=== PATIENT | female | born 1940 | race Caucasian/White ===

== ENCOUNTER 2017-11-26 21:41 | Emergency (ER) | payer MEDICARE, OTHER ==
[~2017-11-26] VITALS: Ht 144.8 cm; Wt 56.7 kg
[~2017-11-26 21:41] MED LIST: ATEN25 PO; BP MED; CELE200 PO; CEPH500 PO; CLON.5 PO; CODACE30 PO; COMPLETE MULTI1 EACH PO; HYDACE10B PO; HYDACE5 PO; IBUP600 PO; LEVSOD150 PO; MORP30ER PO; Neurontin 300300 MG PO; Norco 5-325 Ta1 EACH PO; OXYACE5T PO; OXYC15ER PO; OXYC5 PO; PHENA200 PO; POTASSIUM GLUCONATE; PRAV20 PO; PRED5 PO; Percocet 5-3251 EACH PO; Prednisone20 MG PO; ROSU10TA; SALS500 PO; SPIR25 PO; SULTRIDS PO; SYNTHROID; TRIHYD253A PO; VERA180ERB PO; ZALE10 PO; Zofran4 MG PO; [UNRECOGNIZED DRUG - REMARK]
== END 2017-11-26 23:50 | disposition home or self-care (01) ==
LOC: ER 21:41
DX: S00.83XA Contusion of other part of head, initial encounter (principal); I10 Essential (primary) hypertension; Z87.891 Personal history of nicotine dependence; Z79.899 Other long term (current) drug therapy; Z90.710 Acquired absence of both cervix and uterus; Z90.49 Acquired absence of other specified parts of digestive tract; W01.0XXA Fall on same level from slipping, tripping and stumbling without subsequent striking against object, initial encounter
CPT/HCPCS: 70450; 99284

== ENCOUNTER 2017-12-09 17:08 | Emergency (ER) | payer MEDICARE, OTHER ==
[~2017-12-09] VITALS: Ht 144.8 cm; Wt 59.0 kg
[2017-12-09] MEDS ORDERED: MECL12.5 PO (18:07)
== END 2017-12-09 18:34 | disposition home or self-care (01) ==
LOC: ER 17:08
DX: R42 Dizziness and giddiness (principal); I10 Essential (primary) hypertension; Z79.899 Other long term (current) drug therapy; Z87.891 Personal history of nicotine dependence; Z90.710 Acquired absence of both cervix and uterus; Z90.49 Acquired absence of other specified parts of digestive tract
CPT/HCPCS: 70450; 99284

== ENCOUNTER 2018-04-27 10:05 | Inpatient (IN) | payer MEDICARE, OTHER ==
[~2018-04-27] VITALS: Ht 149.9 cm; Wt 64.4 kg
[~2018-04-27 10:05] MED LIST changes: +MECL12.5 PO
[2018-04-27 11:41] LABS: BASOPHILS ABSOLUTE AUTO 0.02 K/mm3 (0.00-0.23); BASOPHILS PERCENT AUTO 0 % (0-2); EOSINOPHILS PERCENT AUTO 0 % (0-6); Hematocrit 39.2 % (33.0-51.0); Hemoglobin 13.6 g/dL (11.5-16.0); IMMATURE GRAN ABSOLUTE AUTO 0.06 K/mm3 (0.00-0.10); IMMATURE GRAN PERCENT AUTO 0 % (0-1); LYMPHOCYTES ABSOLUTE AUTO 0.92 K/mm3 (0.84-5.20); LYMPHOCYTES PERCENT AUTO 7 % (21-46); MONOCYTES ABSOLUTE AUTO 0.78 K/mm3 (0.16-1.47); MONOCYTES PERCENT AUTO 6 % (4-13); Mean Corpuscular HGB 29.8 pg (26.0-34.0); Mean Corpuscular HGB Conc 34.7 g/dL (31.5-36.5); Mean Corpuscular Volume 86 fL (80-100); Mean Platelet Volume 10.9 fL (9.1-12.4); NEUTROPHILS ABSOLUTE AUTO 12.03 K/mm3 (1.96-9.15); NEUTROPHILS PERCENT AUTO 87 % (41-73); Platelet Count 304 K/mm3 (150-400); RDW Coefficient Variation 12.2 % (11.7-14.2); Red Blood Cell Count 4.57 M/mm3 (3.80-5.20); White Blood Cell Count 13.81 K/mm3 (4.00-11.30)
[2018-04-27 11:45] LABS: International Normalized Ratio 1.02; Prothrombin Time Results 10.5 Sec (9.7-11.5)
[2018-04-27 11:48] LABS: Alanine Aminotransfer (ALT/SGP 23 U/L (12-78); Albumin, Blood 3.8 g/dL (3.4-5.0); Alk Phos 105 U/L (50-136); Anion Gap 9 mmol/L (6-16); Aspartate Aminotrans (AST/SGOT 30 U/L (12-37); Bilirubin, Total 0.6 mg/dL (0.1-1.0); Blood Urea Nitrogen 11 mg/dL (8-24); Bun/Creatinine Ratio 22.5 (12.0-20.0); CO2, Blood 27 mmol/L (21-32); Calcium, Blood 9.3 mg/dL (8.5-10.1); Chloride, Blood 104 mmol/L (98-108); Creatinine, Blood 0.49 mg/dL (0.40-1.00); Globulin, Blood 3.7 g/dL (2.2-4.0); Glomerular Filtration Rate >60 (60-); Glucose, Blood 136 mg/dL (70-99); Potassium, Blood 3.7 mmol/L (3.5-5.5); Sodium, Blood 140 mmol/L (136-145); Total Protein, Blood 7.5 g/dL (6.4-8.2)
[2018-04-28 04:43] LABS: BASOPHILS ABSOLUTE AUTO 0.03 K/mm3 (0.00-0.23); BASOPHILS PERCENT AUTO 0 % (0-2); EOSINOPHILS ABSOLUTE AUTO 0.01 K/mm3 (0.00-0.68); EOSINOPHILS PERCENT AUTO 0 % (0-6); Hematocrit 31.3 % (33.0-51.0); Hemoglobin 10.8 g/dL (11.5-16.0); IMMATURE GRAN ABSOLUTE AUTO 0.02 K/mm3 (0.00-0.10); IMMATURE GRAN PERCENT AUTO 0 % (0-1); LYMPHOCYTES ABSOLUTE AUTO 1.74 K/mm3 (0.84-5.20); LYMPHOCYTES PERCENT AUTO 21 % (21-46); MONOCYTES ABSOLUTE AUTO 0.91 K/mm3 (0.16-1.47); MONOCYTES PERCENT AUTO 11 % (4-13); Mean Corpuscular HGB 29.4 pg (26.0-34.0); Mean Corpuscular HGB Conc 34.5 g/dL (31.5-36.5); Mean Corpuscular Volume 85 fL (80-100); Mean Platelet Volume 10.6 fL (9.1-12.4); NEUTROPHILS ABSOLUTE AUTO 5.57 K/mm3 (1.96-9.15); NEUTROPHILS PERCENT AUTO 67 % (41-73); Platelet Count 228 K/mm3 (150-400); RDW Coefficient Variation 12.3 % (11.7-14.2); RDW Standard Deviation 38.1 fL (35.1-46.3); Red Blood Cell Count 3.67 M/mm3 (3.80-5.20); White Blood Cell Count 8.28 K/mm3 (4.00-11.30)
[2018-04-28 05:03] LABS: Alanine Aminotransfer (ALT/SGP 15 U/L (12-78); Albumin, Blood 2.8 g/dL (3.4-5.0); Alk Phos 75 U/L (50-136); Anion Gap 7 mmol/L (6-16); Aspartate Aminotrans (AST/SGOT 23 U/L (12-37); Bilirubin, Total 0.7 mg/dL (0.1-1.0); Blood Urea Nitrogen 10 mg/dL (8-24); Bun/Creatinine Ratio 19.2 (12.0-20.0); CO2, Blood 27 mmol/L (21-32); Chloride, Blood 108 mmol/L (98-108); Creatinine, Blood 0.52 mg/dL (0.40-1.00); Globulin, Blood 2.9 g/dL (2.2-4.0); Glomerular Filtration Rate >60 (60-); Glucose, Blood 84 mg/dL (70-99); Potassium, Blood 3.8 mmol/L (3.5-5.5); Sodium, Blood 142 mmol/L (136-145); Total Protein, Blood 5.7 g/dL (6.4-8.2)
[2018-04-30] MEDS ORDERED: ENOX40I SC (15:00)
[2018-04-30] MEDS ORDERED: ROXICODONE5 MG PO (15:01)
== END 2018-04-30 17:18 | DRG 470 ==
LOC: ER 10:05 → SURS 10:06
PROVIDERS: Emergency Medicine; Family Medicine; Orthopaedic Surgery
PROC: 0SRR0JZ Replacement of Right Hip Joint, Femoral Surface with Synthetic Substitute, Open Approach (ICD-10-PCS; principal; 2018-04-27 13:25)
DX: S72.001A Fracture of unspecified part of neck of right femur, initial encounter for closed fracture (principal); I10 Essential (primary) hypertension; W01.0XXA Fall on same level from slipping, tripping and stumbling without subsequent striking against object, initial encounter; Y92.008 Other place in unspecified non-institutional (private) residence as the place of occurrence of the external cause; M06.9 Rheumatoid arthritis, unspecified; E03.9 Hypothyroidism, unspecified
CPT/HCPCS: 36415; 71045; 72170; 73502; 80053; 85025; 85610; 93005; 93010; 96361; 96374; 96375; 97110; 97116; 97162; 97165; 97530; 97535; 99285; C1776; G8978; G8979; G8987; G8988; J0171; J0690; J0735; J1170; J1650; J1885; J2250; J2405; J2795; J3010; J7030; J7120; Q0163

== ENCOUNTER 2018-11-29 13:14 | Emergency (ER) | payer MEDICARE, OTHER ==
[~2018-11-29] VITALS: Ht 149.9 cm; Wt 63.0 kg
[~2018-11-29 13:14] MED LIST changes: +ENOX40I SC; +ROXICODONE5 MG PO
== END 2018-11-29 14:35 | disposition home or self-care (01) ==
LOC: ER 13:14
DX: S22.32XA Fracture of one rib, left side, initial encounter for closed fracture (principal); I10 Essential (primary) hypertension; E78.5 Hyperlipidemia, unspecified; Z79.899 Other long term (current) drug therapy; Z87.891 Personal history of nicotine dependence; W19.XXXA Unspecified fall, initial encounter
CPT/HCPCS: 71101; 99283-25

== ENCOUNTER 2021-04-17 08:15 | Emergency (ER) | payer MEDICARE, OTHER ==
[~2021-04-17] VITALS: Ht 149.9 cm; Wt 59.9 kg
[2021-04-17] MEDS ORDERED: Aspir 8181 MG PO (08:29)
== END 2021-04-17 12:03 | disposition home or self-care (01) ==
LOC: ER 08:15
DX: S01.311A Laceration without foreign body of right ear, initial encounter (principal); I10 Essential (primary) hypertension; E78.5 Hyperlipidemia, unspecified; Z88.6 Allergy status to analgesic agent; Z88.5 Allergy status to narcotic agent; Z79.899 Other long term (current) drug therapy; W01.190A Fall on same level from slipping, tripping and stumbling with subsequent striking against furniture, initial encounter
CPT/HCPCS: 64450; 70450; 99283-25